=== PATIENT | female | born 1935 | race Caucasian/White ===

== ENCOUNTER 2018-04-23 09:08 | Day surgery (SDC) | payer OTHER, MEDICARE ==
[2018-04-17 10:51] VITALS: BMI 26.6
--- NOTE | 2018-04-23 07:50 | HP ---
History & Physical Update - History History: No Change - Physical Physical: No Change - Assessment Assessment: No Change - Plan Plan: No Change (Initial H&P (04/06/2018) is located in paper chart. No new complaints or medications. Here today for elective laminectomy 2/2 chronic LBP ( radiates down RLE, burning in both feet).)
[2018-04-23] MEDS ORDERED: oxyCODONE HCL 10 MG SUSTAINED ACTING TABLET PO STA (09:33)
[2018-04-23] MEDS ORDERED: CEFAZOLIN 2 GM in DEXTROSE 5%-WATER - 100 ML IVPB ONE (09:33)
[2018-04-23] MEDS ORDERED: methylPREDNISolone ACET (DEPO) 40 MG/1 ML VIAL ONE (11:34)
[2018-04-23] MEDS ORDERED: THROMBIN (BOVINE) 5,000 UNIT VIAL TP ONE ×3 (11:34→13:00)
[2018-04-23] MEDS ORDERED: LIDOCAINE 1%/EPI 1:100000 (20 ML MULTI DOSE VIAL) ONE (11:34)
[2018-04-23] MEDS ORDERED: DEXAMETHASONE SOD PHOSPHATE/PF 10 MG/ML SDV ONE (11:36)
[2018-04-23] MEDS ORDERED: MIDAZOLAM HCL 2 MG/2 ML SINGLE DOSE VIAL ONE (11:36)
[2018-04-23] MEDS ORDERED: BUPIVACAINE HCL/PF (5 MG/ML) 30 ML VIAL IJ ONE (11:37)
[2018-04-23] MEDS ORDERED: ONDANSETRON 4 MG/2 ML VIAL ONE (12:34)
[2018-04-23] MEDS ORDERED: DEXAMETHASONE SOD PHOSPHATE 4 MG/1 ML VIAL ONE (12:34)
[2018-04-23] MEDS ORDERED: ceFAZolin SODIUM 1 GM VIAL ONE (12:34)
[2018-04-23] MEDS ORDERED: methylPREDNISolone ACET (DEPO) 40 MG/1 ML VIAL IM ONE ×2 (12:57→13:00)
[2018-04-23] MEDS ORDERED: GELATIN, ABSORBABLE 100 EACH SPONGE TP ONE ×2 (12:57→13:00)
[2018-04-23] MEDS ORDERED: ONDANSETRON 4 MG/2 ML VIAL IVPUSH PRN (13:27)
[2018-04-23] MEDS ORDERED: oxyCODONE HCL 5 MG TABLET PO PRN (13:27)
[2018-04-23] MEDS ORDERED: LACTATED RINGERS SOLUTION 1,000 ML IV SCH (13:30)
--- NOTE | 2018-04-23 14:43 | OP ---
DATE OF OPERATION: 04/23/2018 PREOPERATIVE DIAGNOSIS: Spinal stenosis, L4-L5, L5-S1. POSTOPERATIVE DIAGNOSIS: Spinal stenosis, L4-L5, L5-S1. PROCEDURE PERFORMED: Laminectomy, L4-L5, L5-S1. SURGEON: Kris Encarnacion MD CURRICULUM DIRECTOR: FELICITAS Curry ESTIMATED BLOOD LOSS: 50 mL. INTRAVENOUS FLUIDS: Per Anesthesia. ANESTHESIA: Spinal/TLIP. COMPLICATIONS: There were none. DISPOSITION: The patient was brought to the PACU in stable condition. INDICATIONS FOR SURGERY: The patient is an 83-year-old female who has been suffering from pain from her back down her leg. X-rays and MRI were completed which noted that she had spinal stenosis at L4-5 and L5-S1. She has gone through an exhaustive course of treatment for this, including medications, physical therapy, as well as injections. Unfortunately, her pain continued to persist, despite all this. At this point, risks, benefits and alternatives were discussed of surgery and patient consented to surgery. OPERATIVE NOTE: The patient was brought to the operating room by the anesthesia staff. After appropriate patient identification was performed, spinal anesthesia was given. A TLIP block was also given. The patient was able to position herself prone onto the OR table. Two needles were placed into her back to mariama off the L4 and S1 segments. X- rays taken to confirm this was correct. Needle was removed and 10 mL of lidocaine with epinephrine was injected into her back at this time. Her back was prepped and draped in a sterile manner. At this point, an incision was made from the top of L4 down to the bottom of S1. Dissection was carried down to the fascia. Fascia was split at this time and appropriate retractors were then placed in. A spinal needle was placed onto the L5 lamina to mariama the L5-S1 level. X-rays were taken to confirm this was correct. Needle was removed and microscope was brought in. The spinous process of L5 was removed. The lamina of L5 was removed. A complete decompression was performed , by removing portions of the facets as well as flavum, such that by the end of the procedure, the L5 and S1 nerve roots appeared to be well decompressed. All bleeding was well controlled at this time. Steroid was placed over the nerve root and Floseal was placed over that. The fascia was closed with a number-1 Vicryl suture, subcutaneous tissues were closed with 2-0 Vicryl suture, and skin was closed with 3-0 Monocryl suture. Dermabond was applied. Steri-Strips were applied. A sterile dressing was applied. The patient was placed supine on the OR bed and brought to the PACU in stable condition. Alyssa CARCAMO/[id number] MTDD
[2018-04-23 14:55] VITALS: PULSE 60
[2018-04-23 15:54] VITALS: BP 128/71
[2018-04-23 15:57] VITALS: TEMP 98.1
== END 2018-04-23 16:01 | disposition home or self-care (01) ==
LOC: FASU 09:08
PROVIDERS: ATTEND Orthopaedic Surgery Orthopaedic Surgery of the Spine
PROC: 01NB0ZZ Release Lumbar Nerve, Open Approach (ICD-10-PCS; principal; 2018-04-23 12:39)
DX: M48.061 Spinal stenosis, lumbar region without neurogenic claudication (principal); M48.07 Spinal stenosis, lumbosacral region
CPT/HCPCS: 72100-TC-FY; 76000-TC-FY; 94760